=== PATIENT | female | born 1970 | race African-American/Black ===

== ENCOUNTER 2017-09-25 01:46 | Emergency (ER) | payer OTHER ==
[~2017-09-25] VITALS: Ht 157.5 cm; Wt 111.8 kg
[2017-09-25 02:14] VITALS: Ht 157.5 cm; Wt 111.8 kg
[2017-09-25] MEDS ORDERED: ONDANSETRON 4 MG INJ IV STA (02:16)
[2017-09-25] MEDS ORDERED: morphine 4 MG/ML VIAL IV STA (02:16)
[2017-09-25] MEDS ORDERED: SOD CHLORIDE 0.9% 500 ML IV STA (02:16)
[2017-09-25] MEDS ORDERED: ONDANSETRON 4 MG INJ IM STA (02:56)
[2017-09-25] MEDS ORDERED: morphine 4 MG/ML VIAL IM STA (02:56)
[2017-09-25 04:28] LABS: BASOPHILS % 0.7 % (0.0-2.0); EOSINOPHILS # 0.1 10^3/ul (0.0-0.5); EOSINOPHILS % 2.2 % (0.0-7.0); HEMATOCRIT 29.8 % (37.0-47.0); HEMOGLOBIN 9.8 g/dl (12.0-16.0); LYMPHOCYTES # 2.5 10^3/ul (0.8-2.9); LYMPHOCYTES % 46.5 % (15.0-51.0); MEAN CORPUSCULAR HEMOGLOBIN 24.7 pg (29.0-33.0); MEAN CORPUSCULAR HGB CONC 32.9 g/dl (32.0-37.0); MEAN CORPUSCULAR VOLUME 75.3 fl (82.0-101.0); MEAN PLATELET VOLUME 9.9 fl (7.4-10.4); MONOCYTE # 0.5 10^3/ul (0.3-0.9); MONOCYTES % 9.1 % (0.0-11.0); NEUTROPHIL # 2.2 10^3/ul (1.6-7.5); NEUTROPHILS % 41.3 % (39.0-77.0); PLATELET COUNT 393 10^3/UL (140-415); RED BLOOD COUNT 3.96 10^6/ul (4.20-5.40); RED CELL DISTRIBUTION WIDTH 15.9 % (11.5-14.5); WHITE BLOOD COUNT 5.4 10^3/ul (4.8-10.8)
[2017-09-25 04:52] LABS: ALBUMIN/GLOBULIN RATIO 1.02; BILIRUBIN,INDIRECT 0.3 mg/dl (0-1.1); BILIRUBIN,TOTAL 0.3 mg/dl (0.2-1.3); CALCIUM 8.9 mg/dl (8.4-10.2); CREATININE 0.79 mg/dl (0.44-1.00); POTASSIUM 3.8 mmol/L (3.5-5.1); TOTAL PROTEIN 7.9 g/dl (6.1-8.1)
--- NOTE | 2017-09-25 05:32 | ERD ---
ER Documentation Chief Complaint Chief Complaint vomiting and diarrhea x1 wk. HPI 47-year-old female with abdominal pain nausea vomiting diarrhea for the past week. No fevers no chills. No other current complaints. Patient is very a rash with multiple bites from them during that same time.. ROS All systems reviewed and are negative except as per history of present illness. Allergies Allergies: Coded Allergies: No Known Allergy (Unverified , 09/25/17) PMhx/Soc History of Surgery: No Anesthesia Reaction: No Hx Neurological Disorder: Yes (seizure) Hx Respiratory Disorders: No Hx Cardiac Disorders: Yes (htn) Hx Psychiatric Problems: Yes Hx Alcohol Use: No Hx Substance Use: No Hx Tobacco Use: Yes Smoking Status: Current some day smoker Physical Exam Vitals Vital Signs Date Time Temp Pulse Resp B/P Pulse Ox O2 Delivery O2 Flow Rate FiO2 09/25/17 05:04 98.6 59 20 160/127 100 Room Air 09/25/17 02:14 98.0 68 20 190/77 100 Physical Exam Const: [] Head: Atraumatic Eyes: Normal Conjunctiva ENT: Normal External Ears, Nose and Mouth. Neck: Full range of motion..~ No meningismus. Resp: Clear to auscultation bilaterally Cardio: Regular rate and rhythm, no murmurs Abd: Soft, non tender, non distended. Normal bowel sounds Skin: No petechiae or rashes Back: No midline or flank tenderness Ext: No cyanosis, or edema Neur: Awake and alert Psych: Normal Mood and Affect Result Diagram: 09/25/17 0403 09/25/17 0403 Results 24 hrs Laboratory Tests Test 09/25/17 04:03 White Blood Count 5.410^3/ul Red Blood Count 3.9610^6/ul Hemoglobin 9.8g/dl Hematocrit 29.8% Mean Corpuscular Volume 75.3fl Mean Corpuscular Hemoglobin 24.7pg Mean Corpuscular Hemoglobin Concent 32.9g/dl Red Cell Distribution Width 15.9% Platelet Count 55121^3/UL Mean Platelet Volume 9.9fl Neutrophils % 41.3% Lymphocytes % 46.5% Monocytes % 9.1% Eosinophils % 2.2% Basophils % 0.7% Nucleated Red Blood Cells % 0.0/100WBC Neutrophils # 2.210^3/ul Lymphocytes # 2.510^3/ul Monocytes # 0.510^3/ul Eosinophils # 0.110^3/ul Basophils # 0.010^3/ul Nucleated Red Blood Cells # 0.010^3/ul Sodium Level 144mmol/L Potassium Level 3.8mmol/L Chloride Level 105mmol/L Carbon Dioxide Level 27mmol/L Anion Gap 16 Blood Urea Nitrogen 9mg/dl Creatinine 0.79mg/dl Glucose Level 91mg/dl Calcium Level 8.9mg/dl Total Bilirubin 0.3mg/dl Direct Bilirubin 0.00mg/dl Indirect Bilirubin 0.3mg/dl Aspartate Amino Transf (AST/SGOT) 17IU/L Alanine Aminotransferase (ALT/SGPT) 17IU/L Alkaline Phosphatase 77IU/L Total Protein 7.9g/dl Albumin 4.0g/dl Globulin 3.90g/dl Albumin/Globulin Ratio 1.02 Lipase 67U/L Current Medications Medications (Trade) Dose Ordered Sig/Greyson Route PRN Reason Start Time Stop Time Status Last Admin Dose Admin Sodium Chloride (NS) 500 ml @ 500 mls/hr Q1H STAT IV 09/25/17 02:16 09/25/17 03:15 DC Morphine Sulfate (morphine) 4 mg ONCE STAT IV 09/25/17 02:16 09/25/17 02:58 DC Ondansetron HCl (Zofran Inj) 4 mg ONCE STAT IV 09/25/17 02:16 09/25/17 02:58 DC Morphine Sulfate (morphine) 4 mg ONCE STAT IM 09/25/17 02:56 09/25/17 03:04 DC 09/25/17 03:04 Ondansetron HCl (Zofran Inj) 4 mg ONCE STAT IM 09/25/17 02:56 09/25/17 03:04 DC 09/25/17 03:04 Procedures/MDM Decision-makin-year-old male with abdominal pain vomiting diarrhea. At this point clinically stable for outpatient management. No evidence of surgical abdomen. At this point is clinically stable for outpatient management patient will be discharged home. Told to follow-up in 8 hours for serial abdominal exams. Breath prescribed for bedbugs as well. Departure Diagnosis: Primary Impression: Diarrhea Diarrhea type: infectious Qualified Code: A09 - Diarrhea of infectious origin Condition: Stable ALYCIA OCHOA Sep 25, 2017 05:32
[2017-09-25] MEDS ORDERED: [UNRECOGNIZED DRUG - CODE] MC (05:34)
[2017-09-25] MEDS ORDERED: ELIM TOP ×2 (05:34→09:48)
[2017-09-25 05:40] VITALS: BP 156/99; PULSE 80; RESP 22; TEMP 98
== END 2017-09-25 06:35 | disposition home or self-care (01) ==
LOC: EDSEX 01:46 → E/R 01:46
DX: A09 Infectious gastroenteritis and colitis, unspecified (principal); I10 Essential (primary) hypertension; F17.210 Nicotine dependence, cigarettes, uncomplicated
CPT/HCPCS: 80053; 83690; 85025; 96372; J2270; J2405; J7040; Z7502

== ENCOUNTER 2017-09-25 08:46 | Emergency (ER) | payer OTHER ==
[~2017-09-25] VITALS: Ht 157.5 cm; Wt 111.7 kg
[~2017-09-25 08:46] MED LIST: ELIM TOP; [UNRECOGNIZED DRUG - CODE] MC
[2017-09-25 08:53] VITALS: Ht 157.5 cm; Wt 111.7 kg
[2017-09-25] MEDS ORDERED: ELIM TOP (09:48)
--- NOTE | 2017-09-25 10:47 | ERD ---
ER Documentation Chief Complaint Chief Complaint rash x1 week, bilat leg pain x 1 week HPI 47-year-old female patient with a past medical history of schizophrenia, seizures presents to the ED complaining of a rash that occurred 1 week ago. Patient reports that she was staying at a motel last Sunday and saw bedbugs and felt like they were biting her. Reports that she is tried taking Benadryl without relief of her symptoms. Denies any chest pain, shortness of breath, wheezing, abdominal pain, fever, chills. Patient was seen earlier today here in the ER and had a full evaluation including blood work. ROS All systems reviewed and are negative except as per history of present illness. Medications Home Meds Active Scripts Permethrin* (Elimite*) 5% Cr, 1 APPLIC TOP ONCE, #1 TUB Thoroughly massage cream (30 g for average adult) from head to soles of feet; leave on for 8 to 14 hours before removing (shower or bath) Prov:SHANIA HERNANDEZ PA-C 09/25/17 Permethrin* (Elimite*) 5% Cr, 1 APPLIC TOP ONCE for 7 Days, TUB Prov:ALYCIA OCHOA 09/25/17 Permethrin (Bedding [place]) 142 Gm [place], 142 GM MC Q12, #1 SPRAY Prov:ALYCIA OCHOA 09/25/17 Allergies Allergies: Coded Allergies: No Known Allergy (Unverified , 09/25/17) PMhx/Soc Medical and Surgical Hx: pt denies Surgical Hx History of Surgery: No Anesthesia Reaction: No Hx Neurological Disorder: Yes (seizure) Hx Respiratory Disorders: No Hx Cardiac Disorders: Yes (htn) Hx Psychiatric Problems: Yes Hx Alcohol Use: No Hx Substance Use: No Hx Tobacco Use: Yes Smoking Status: Current every day smoker Physical Exam Vitals Vital Signs Date Time Temp Pulse Resp B/P Pulse Ox O2 Delivery O2 Flow Rate FiO2 09/25/17 08:53 97.2 78 18 151/98 100 Physical Exam Const: [id number], well-nourished. In no acute distress. Head: Atraumatic, normocephalic Eyes: Normal Conjunctiva without injection. No purulent discharge. PERRLA. EOMI ENT: Normal external ear. Ear canal without erythema. Tympanic membrane pearly pollard without effusion or bulging. Nasal canal clear with normal turbinates. Moist oropharynx without tonsillar exudates. Non-erythematous pharynx. Uvula midline. No drooling. No trismus. Neck: No cervical midline tenderness. Full range of motion. No meningismus. No cervical lymphadenopathy. No JVD. Resp: Clear to auscultation bilaterally. No wheezing, rhonchi, rales, or crackles. No accessory muscle use. No retractions. Cardio: Regular rate and rhythm. No murmurs, rubs or gallops. Abd: Soft, non tender, non distended. Normal bowel sounds. No palpable masses. No rebound tenderness. No guarding. Negative McBurney's Point. Negative Subramanian's Sign. Skin: Normal skin turgor. No petechiae or purpura. Linear punctate bite lesions noted on patient's posterior back with no surrounding erythema or edema. No fluctuance or induration. No bleeding noted. Back: No midline tenderness. No CVA tenderness. Ext: No cyanosis, or edema. Distal pulses intact bilaterally. Neur: Awake and alert. Normal gait. Normal coordination. Cranial Nerves II- VII intact. Normal finger to nose. Muscle strength 5/5. Sensation intact. Psych: Normal Mood and Affect Results 24 hrs Current Medications Medications (Trade) Dose Ordered Sig/Greyson Route PRN Reason Start Time Stop Time Status Last Admin Dose Admin Ketorolac Tromethamine (Toradol) 60 mg ONCE STAT IM 09/25/17 10:52 09/25/17 10:54 DC 09/25/17 10:58 Procedures/MDM 47-year-old female patient with no significant past medical history presents to the ED complaining of a rash that occurred 1 week ago. Patient is afebrile and nontoxic-appearing. Patient has normal vital signs. Differentials include scabies versus bedbugs. Patient will be given a prescription for permethrin. Patient reports that the rashes are itchy and painful all over and wanted an injection for pain. Toradol Administered for patient.This case was discussed with my supervising physician, Dr. Rivas who agreed with the management and discharge plan. Low suspicion for anaphylaxis, SJS/TEN, TSS, Lyme's Disease, syphilis, RMSF, shingles, disseminated gonorrhea chlamydia, DIC, TTP, ITP, erythema multiforme, sepsis, cellulitis, necrotizing fascitis, gangrene, meningococcemia, allergic contact dermatitis, urticaria, eczema, tinea infection , or other emergent conditions. Discharge medications: Permethrin Follow up with primary care physician in 1-2 days. Instructed patient to return to the ED sooner for any worsening symptoms. Patient's questions were answered. Patient understood and agreed with discharge plan. Patient discharged stable. Departure Diagnosis: Primary Impression: Rash Condition: Stable Patient Instructions: Self-Care for Skin Rashes, Scabies Referrals: [facility] YOU HAVE RECEIVED A MEDICAL SCREENING EXAM AND THE RESULTS INDICATE THAT YOU DO NOT HAVE A CONDITION THAT REQUIRES URGENT TREATMENT IN THE EMERGENCY DEPARTMENT. FURTHER EVALUATION AND TREATMENT OF YOUR CONDITION CAN WAIT UNTIL YOU ARE SEEN IN YOUR DOCTORS OFFICE WITHIN THE NEXT 1-2 DAYS. IT IS YOUR RESPONSIBILITY TO MAKE AN APPOINTMENT FOR FOLOW-UP CARE. IF YOU HAVE A PRIMARY DOCTOR --you should call your primary doctor and schedule an appointment IF YOU DO NOT HAVE A PRIMARY DOCTOR YOU CAN CALL OUR PHYSICIAN REFERRAL HOTLINE AT IF YOU CAN NOT AFFORD TO SEE A PHYSICIAN YOU CAN CHOSE FROM THE FOLLOWING [facility] [address] [facility]. [facility] [address] [facility] [address] [facility] [facility] [address] [facility] [facility] [address] [facility]. [facility]. [address] [facility]. [facility] YOU HAVE RECEIVED A MEDICAL SCREENING EXAM AND THE RESULTS INDICATE THAT YOU DO NOT HAVE A CONDITION THAT REQUIRES URGENT TREATMENT IN THE EMERGENCY DEPARTMENT. FURTHER EVALUATION AND TREATMENT OF YOUR CONDITION CAN WAIT UNTIL YOU ARE SEEN IN YOUR DOCTORS OFFICE WITHIN THE NEXT 1-2 DAYS. IT IS YOUR RESPONSIBILITY TO MAKE AN APPOINTMENT FOR FOLOW-UP CARE. IF YOU HAVE A PRIMARY DOCTOR --you should call your primary doctor and schedule and appointment IF YOU DO NOT HAVE A PRIMARY DOCTOR YOU CAN CALL OUR PHYSICIAN REFERRAL HOTLINE AT . IF YOU CAN NOT AFFORD TO SEE A PHYSICIAN YOU CAN CHOSE FROM THE FOLLOWING [facility] INSTITUTIONS: [facility] [address] [place] [address] [facility] [address] [place] [address] [facility] + [facility] [address] [place] [address] [facility]/SPECIALTIES Additional Instructions: Call your primary care doctor TOMORROW for an appointment during the next 2-3 days.See the doctor sooner or return here if your condition worsens before your appointment time. SHANIA HERNANDEZ PA-C Sep 25, 2017 10:47
[2017-09-25] MEDS ORDERED: KETOROLAC 60 MG INJ IM STA (10:52)
== END 2017-09-25 09:49 | disposition home or self-care (01) ==
LOC: FTE 08:46
DX: R21 Rash and other nonspecific skin eruption (principal); I10 Essential (primary) hypertension; F17.210 Nicotine dependence, cigarettes, uncomplicated
CPT/HCPCS: 96372; J1885; Z7502

== ENCOUNTER 2017-09-27 07:31 | Emergency (ER) | payer OTHER ==
[~2017-09-27] VITALS: Ht 160 cm; Wt 111.0 kg
[2017-09-27 07:33] VITALS: Ht 160 cm; Wt 111.0 kg
--- NOTE | 2017-09-27 08:04 | ERD ---
ER Documentation Chief Complaint Chief Complaint pt bib family with c/o bilatt leg pain , HPI 47-year-old female, history of "heart problems" comes to emergency department with bilateral lower extremity swelling "for a long time." She states that she has had swelling to both lower extremities, she thinks it could have been for couple of years. She has line with pain. No fevers or chills, no trauma. She denies shortness breath, cough, chest pain. ROS All systems reviewed and are negative except as per history of present illness. Medications Home Meds Active Scripts Permethrin* (Elimite*) 5% Cr, 1 APPLIC TOP ONCE, #1 TUB Thoroughly massage cream (30 g for average adult) from head to soles of feet; leave on for 8 to 14 hours before removing (shower or bath) Prov:SHANIA HERNANDEZ PA-C 09/25/17 Permethrin* (Elimite*) 5% Cr, 1 APPLIC TOP ONCE for 7 Days, TUB Prov:ALYCIA OCHOA 09/25/17 Permethrin (Bedding [place]) 142 Gm [place], 142 GM MC Q12, #1 SPRAY Prov:ALYCIA OCHOA 09/25/17 Allergies Allergies: Coded Allergies: No Known Allergy (Unverified , 09/25/17) PMhx/Soc History of Surgery: No Anesthesia Reaction: No Hx Neurological Disorder: Yes (seizure) Hx Respiratory Disorders: No Hx Cardiac Disorders: Yes (htn) Hx Psychiatric Problems: Yes Hx Alcohol Use: No Hx Substance Use: No Hx Tobacco Use: Yes Physical Exam Vitals Vital Signs Date Time Temp Pulse Resp B/P Pulse Ox O2 Delivery O2 Flow Rate FiO2 09/27/17 07:33 98.8 76 18 168/95 98 Physical Exam General: Well-developed, well-nourished. The patient appears in no acute distress. HEENT: Head is normocephalic, atraumatic. No scleral icterus. Neck: Supple. Nontender. Lungs: Clear to auscultation. Normal air movement. Heart: Regular rate and rhythm. S1 and S2 are normal. No murmurs, gallops, or rubs. Abdomen: Soft, nontender, nondistended. Bowel sounds are normoactive. Extremities:, Non-pitting bilateral edema, no warmth or erythema Neurologic: Alert and oriented 3. No focal deficits. Skin: Normal turgor. No rash or lesions. Result Diagram: 09/27/17 0848 09/27/17 0848 Results 24 hrs Laboratory Tests Test 09/27/17 08:48 White Blood Count 4.310^3/ul Red Blood Count 3.9010^6/ul Hemoglobin 9.7g/dl Hematocrit 29.2% Mean Corpuscular Volume 74.9fl Mean Corpuscular Hemoglobin 24.9pg Mean Corpuscular Hemoglobin Concent 33.2g/dl Red Cell Distribution Width 15.8% Platelet Count 23538^3/UL Mean Platelet Volume 9.2fl Neutrophils % 49.0% Lymphocytes % 38.4% Monocytes % 9.4% Eosinophils % 2.3% Basophils % 0.7% Nucleated Red Blood Cells % 0.0/100WBC Neutrophils # 2.110^3/ul Lymphocytes # 1.610^3/ul Monocytes # 0.410^3/ul Eosinophils # 0.110^3/ul Basophils # 0.010^3/ul Nucleated Red Blood Cells # 0.010^3/ul Sodium Level 143mmol/L Potassium Level 3.2mmol/L Chloride Level 107mmol/L Carbon Dioxide Level 26mmol/L Anion Gap 13 Blood Urea Nitrogen 12mg/dl Creatinine 0.78mg/dl Glucose Level 88mg/dl Calcium Level 8.7mg/dl B-Type Natriuretic Peptide 250PG/ML Serum HCG, Qualitative NEGATIVE 12-lead EKG(interpreted by supervising physician): Dr. Arnold Rate/Rhythm: Normal Sinus Rhythm, rate of 64 QRS, ST, T-waves: No changes consistent w/ acute ischemia, no intervals, no dysrhythmias, no ectopy Impression: No evidence of ischemia or arrhythmia Radiology Main Line: [phone] DIAGNOSTIC IMAGING REPORT Patient: ARYAN BORREGO : 1970 Age: 47 Sex: F MR #: [id number] [facility] #: [id number] DOS: 09/27/17 0758 Ordering MD: RONY CORDERO PA-C Location: [facility] Room/Bed: PROCEDURE: XR Chest AP portable CLINICAL INDICATION: Lower extremity edema TECHNIQUE: An AP portable radiograph of the chest was submitted. COMPARISON: None. FINDINGS: Support Hardware: None Cardiovascular: The cardiovascular silhouette appears unremarkable. Lung Steen: The lung steen are clear. Pleural Spaces: No pneumothorax or pleural effusion is identified. Osseous Structures: The osseous structures appear intact. Soft Tissues: The soft tissues appear generous. IMPRESSION: Unremarkable portable chest Physician Leo Date Time Electronically viewed and signed by Vinod Heller Physician on 09/27/2017 09:02 RH/ Procedures/MDM 4 month. Patient's workup does not show ischemic changes on EKG, labs are normal, electrolytes are normal, BNP was 250, she is not in failure. Chest x- ray was performed, there is no vascular congestion noted. The patient presents with chronic peripheral edema, without signs of acute failure, DVT, cellulitis. The patient is stable for discharge, she was advised to follow-up with her PCP in the next several days. Patient's blood pressure was elevated (>120/80) but appears stable without evidence of hypertension emergency or urgency. The patient was counseled about the risks of hypertension and urged to pursue outpatient monitoring and therapy within a week with their primary care physician. Departure Diagnosis: Primary Impression: Peripheral edema ROYN CORDERO PA-C Sep 27, 2017 08:04
[2017-09-27 09:00] LABS: BASOPHILS % 0.7 % (0.0-2.0); EOSINOPHILS # 0.1 10^3/ul (0.0-0.5); EOSINOPHILS % 2.3 % (0.0-7.0); HEMATOCRIT 29.2 % (37.0-47.0); HEMOGLOBIN 9.7 g/dl (12.0-16.0); LYMPHOCYTES # 1.6 10^3/ul (0.8-2.9); LYMPHOCYTES % 38.4 % (15.0-51.0); MEAN CORPUSCULAR HEMOGLOBIN 24.9 pg (29.0-33.0); MEAN CORPUSCULAR HGB CONC 33.2 g/dl (32.0-37.0); MEAN CORPUSCULAR VOLUME 74.9 fl (82.0-101.0); MEAN PLATELET VOLUME 9.2 fl (7.4-10.4); MONOCYTE # 0.4 10^3/ul (0.3-0.9); MONOCYTES % 9.4 % (0.0-11.0); NEUTROPHIL # 2.1 10^3/ul (1.6-7.5); PLATELET COUNT 363 10^3/UL (140-415); RED CELL DISTRIBUTION WIDTH 15.8 % (11.5-14.5); WHITE BLOOD COUNT 4.3 10^3/ul (4.8-10.8)
--- NOTE | 2017-09-27 09:02 | RADRPT ---
PROCEDURE: XR Chest AP portable CLINICAL INDICATION: Lower extremity edema TECHNIQUE: An AP portable radiograph of the chest was submitted. COMPARISON: None. FINDINGS: Support Hardware: None Cardiovascular: The cardiovascular silhouette appears unremarkable. Lung Richmond: The lung richmond are clear. Pleural Spaces: No pneumothorax or pleural effusion is identified. Osseous Structures: The osseous structures appear intact. Soft Tissues: The soft tissues appear generous. IMPRESSION: Unremarkable portable chest Physician Leo Date Time Electronically viewed and signed by Vinod Heller Physician on 09/27/2017 09:02 /
[2017-09-27 09:20] LABS: CALCIUM 8.7 mg/dl (8.4-10.2); CREATININE 0.78 mg/dl (0.44-1.00); POTASSIUM 3.2 mmol/L (3.5-5.1)
[2017-09-27] MEDS ORDERED: KETOROLAC 30 MG INJ IM STA (10:07)
[2017-09-27 11:01] VITALS: BP 154/95; PULSE 75; RESP 18; TEMP 98.8
== END 2017-09-27 11:20 | disposition home or self-care (01) ==
LOC: FTE 07:31
DX: R60.0 Localized edema (principal); I10 Essential (primary) hypertension; F17.210 Nicotine dependence, cigarettes, uncomplicated; R06.02 Shortness of breath
CPT/HCPCS: 36415; 71010; 80048; 83880; 84703; 85025; 96372; J1885; Z7502

== ENCOUNTER 2017-10-13 00:12 | Emergency (ER) | payer OTHER ==
[~2017-10-13] VITALS: Ht 170.2 cm; Wt 106.4 kg
[2017-10-13 00:13] VITALS: Ht 170.2 cm; Wt 106.4 kg
[2017-10-13] MEDS ORDERED: ELIM TOP (01:24)
--- NOTE | 2017-10-13 01:28 | ERD ---
ER Documentation Chief Complaint Chief Complaint body itchinesss, states" bed bugs at home" HPI 47-year-old female complaining of diffuse body itchiness and states that she has scabies. Patient states that she can see the bugs but has been treated with creams and has not helped to relieve his symptoms. Patient states someone else at home some has similar symptoms. Denies any abdominal pain. Denies vomiting. Denies change in urination or bowel movement. ROS All systems reviewed and are negative except as per history of present illness. Medications Home Meds Active Scripts Permethrin* (Elimite*) 5% Cr, 1 APPLIC TOP ONCE, #1 TUB 4 Refills Prov:MERRILL BRUSH PA-C 10/13/17 Permethrin* (Elimite*) 5% Cr, 1 APPLIC TOP ONCE, #1 TUB Thoroughly massage cream (30 g for average adult) from head to soles of feet; leave on for 8 to 14 hours before removing (shower or bath) Prov:SHANIA HERNANDEZ PA-C 09/25/17 Permethrin* (Elimite*) 5% Cr, 1 APPLIC TOP ONCE for 7 Days, TUB Prov:ALYCIA OCHOA 09/25/17 Permethrin (Bedding [place]) 142 Gm [place], 142 GM MC Q12, #1 SPRAY Prov:ALYCIA OCHOA 09/25/17 Allergies Allergies: Coded Allergies: No Known Allergy (Unverified , 09/25/17) PMhx/Soc History of Surgery: Yes (CS, UMBILICAL HERNIA REPAIR ) Anesthesia Reaction: No Hx Neurological Disorder: Yes (seizure) Hx Respiratory Disorders: No Hx Cardiac Disorders: Yes (htn) Hx Psychiatric Problems: Yes (SCHITZOPHRENIA) Hx Alcohol Use: No Hx Substance Use: No ("CLEAN FOR 12 YEARS") Hx Tobacco Use: No Smoking Status: Former smoker Physical Exam Vitals Vital Signs Date Time Temp Pulse Resp B/P Pulse Ox O2 Delivery O2 Flow Rate FiO2 10/13/17 00:13 97.7 88 20 146/80 98 Physical Exam GENERAL: The patient is well-appearing, well-nourished, in no acute distress HEENT: Atraumatic. Conjunctivae are pink. Pupils equal, round, and reactive to light. There is no scleral icterus. Tympanic membranes clear bilaterally. Oropharynx clear. No nystagmus or photophobia. NECK: C-spine is soft and supple. There is no meningismus. There is no cervical lymphadenopathy. CHEST: Clear to auscultation bilaterally. There are no rales, wheezes or rhonchi. HEART: Regular rate and rhythm. No murmurs, clicks, rubs or gallops. No S3 or S4. ABDOMEN:Soft, nontender and nondistended. Good bowel sounds. No rebound or guarding. No gross peritonitis. No gross organomegaly or masses. No Subramanian sign or McBurney point tenderness. SKIN: Corrugations and linear burrowing appreciated on back and groin. No vesicles. No Results 24 hrs Current Medications Medications (Trade) Dose Ordered Sig/Greyson Route PRN Reason Start Time Stop Time Status Last Admin Dose Admin Penicillin G Benzathine (Bicillin La) 1,200,000 units ONCE ONCE IM 10/13/17 01:30 10/13/17 01:31 Procedures/MDM ER course: IM penicillin given the ED per patient's request. She states that "shot is the only thing will help my symptoms" MDM: 47-year-old female complaining of scabies outbreak. Patient will be discharged with permethrin. Patient did receive an IM injection of penicillin in the ED as she states that the only thing that will help her symptoms. Patient is somewhat aggressive in nature. I explained patient that she likely needs an additional treatment of permethrin cream. Patient states that she will follow up with PMD within 1 to 2 days for close evaluation. Patient is discharged with strict ER precautions Departure Diagnosis: Primary Impression: Itching Condition: Stable Patient Instructions: Self-Care for Skin Rashes Referrals: [facility] YOU HAVE RECEIVED A MEDICAL SCREENING EXAM AND THE RESULTS INDICATE THAT YOU DO NOT HAVE A CONDITION THAT REQUIRES URGENT TREATMENT IN THE EMERGENCY DEPARTMENT. FURTHER EVALUATION AND TREATMENT OF YOUR CONDITION CAN WAIT UNTIL YOU ARE SEEN IN YOUR DOCTORS OFFICE WITHIN THE NEXT 1-2 DAYS. IT IS YOUR RESPONSIBILITY TO MAKE AN APPOINTMENT FOR FOLOW-UP CARE. IF YOU HAVE A PRIMARY DOCTOR --you should call your primary doctor and schedule an appointment IF YOU DO NOT HAVE A PRIMARY DOCTOR YOU CAN CALL OUR PHYSICIAN REFERRAL HOTLINE AT IF YOU CAN NOT AFFORD TO SEE A PHYSICIAN YOU CAN CHOSE FROM THE FOLLOWING [facility] [address] [facility] [address] [facility] [address] [facility] [address] [address] [facility] [facility] [address] Additional Instructions: FOLLOW UP WITH YOUR PRIMARY CARE PHYSICIAN TOMORROW.Return to this facility if you are not improving as expected. MERRILL BRUSH PA-C Oct 13, 2017 01:28
[2017-10-13] MEDS ORDERED: PENICILLIN G BENZ 1.2 MIL UNIT SYG IM ONE (01:30)
== END 2017-10-13 02:21 | disposition home or self-care (01) ==
LOC: FTE 00:12
DX: L29.9 Pruritus, unspecified (principal); I10 Essential (primary) hypertension; Z87.891 Personal history of nicotine dependence
CPT/HCPCS: 96372; J0561

== ENCOUNTER 2018-01-12 14:28 | Emergency (ER) | END 2018-01-12 23:18 | disposition home or self-care (01) ==

== ENCOUNTER 2018-01-17 14:19 | Emergency (ER) | END 2018-01-17 23:00 | disposition home or self-care (01) ==

== ENCOUNTER 2018-02-03 21:58 | Emergency (ER) | END 2018-02-04 04:15 | disposition home or self-care (01) ==

== ENCOUNTER 2018-05-28 20:39 | Emergency (ER) | END 2018-05-29 05:16 | disposition home or self-care (01) ==

== ENCOUNTER 2018-08-07 16:06 | Emergency (ER) | END 2018-08-07 17:46 | disposition home or self-care (01) ==

== ENCOUNTER 2018-08-16 21:21 | Emergency (ER) | END 2018-08-17 05:40 | disposition short-term general hospital (02) ==

== ENCOUNTER 2018-08-24 21:04 | Emergency (ER) | END 2018-08-25 02:41 | disposition home or self-care (01) ==

== ENCOUNTER 2018-08-29 20:04 | Emergency (ER) | END 2018-08-30 00:43 | disposition home or self-care (01) ==

== ENCOUNTER 2018-09-09 00:57 | Emergency (ER) | END 2018-09-09 10:16 | disposition short-term general hospital (02) ==

== ENCOUNTER 2018-09-14 23:17 | Emergency (ER) | END 2018-09-15 05:15 | disposition home or self-care (01) ==

== ENCOUNTER 2018-09-15 10:10 | Emergency (ER) | END 2018-09-15 11:53 | disposition home or self-care (01) ==

== ENCOUNTER → 2018-09-18 | Emergency (ER) | END | disposition home or self-care (01) ==

== ENCOUNTER 2018-09-24 18:20 | Emergency (ER) | END 2018-09-24 20:15 | disposition home or self-care (01) ==

== ENCOUNTER 2018-10-02 20:05 | Emergency (ER) | END 2018-10-03 02:03 | disposition home or self-care (01) ==

== ENCOUNTER 2018-10-05 21:20 | Emergency (ER) | END 2018-10-06 03:20 | disposition home or self-care (01) ==

== ENCOUNTER 2018-10-07 21:16 | Emergency (ER) | END 2018-10-08 02:44 | disposition home or self-care (01) ==

== ENCOUNTER 2018-10-11 13:57 | Inpatient (IN) | END 2018-10-16 17:20 | DRG 988 ==

== ENCOUNTER 2018-10-18 19:23 | Emergency (ER) | END 2018-10-19 06:35 | disposition short-term general hospital (02) ==

== ENCOUNTER 2018-11-08 18:39 | Emergency (ER) | payer OTHER ==
[~2018-11-08] VITALS: Wt 132.0 kg
[2018-11-08] MEDS ORDERED: ONDA4TAB14 PO (20:22)
--- NOTE | 2018-11-08 20:24 | ERD ---
ER Documentation Chief Complaint Chief Complaint bib ra from home for 'feeling sick' cough, sob, HPI Patient is a 48-year-old female with schizophrenia, diabetes, and hypertension who presents with vomiting and diarrhea. The patient says that she was discharged from [facility] a few days ago. Her says she had a fever "up to 130". The patient did not get a flu shot this year. She has not called her primary doctor. She is speaking in full sentences. She says that she has a cough and congestion. Upon review of old medical records the patient has multiple visits to the ER for various complaints. She does have a primary doctor. ROS All systems reviewed and are negative except as per history of present illness. Medications Home Meds Active Scripts Ondansetron (Ondansetron Odt) 4 Mg Tab.rapdis, 4 MG PO Q6H PRN for NAUSEA AND/OR VOMITING, #10 TAB Prov:PATRICIA HENDRICKSON MD 11/08/18 Allergies Allergies: Coded Allergies: diphenhydramine (Unverified Allergy, Severe, ITCH, 11/08/18) aspirin (Unverified Allergy, Unknown, hives, 11/08/18) PMhx/Soc History of Surgery: Yes Anesthesia Reaction: No Hx Neurological Disorder: Yes (Seizure,CVA) Hx Respiratory Disorders: No Hx Cardiac Disorders: Yes (CHF, HTN) Hx Psychiatric Problems: Yes (Schizophrenia,Bipolar D/O) Hx Miscellaneous Medical Probl: Yes (Morbid Obesity, DM) Hx Alcohol Use: No Hx Substance Use: No Hx Tobacco Use: No Smoking Status: Never smoker FmHx Family History: diabetes Physical Exam Vitals Vital Signs Date Temp Pulse Resp B/P (MAP) Pulse Ox O2 O2 Flow FiO2 Time Delivery Rate 11/08/18 98.9 105 22 171/81 94 18:47 (111) Physical Exam Const: No acute distress Head: Atraumatic Eyes: Normal Conjunctiva ENT: Normal External Ears, Nose and Mouth. Neck: Full range of motion. No meningismus. Resp: Clear to auscultation bilaterally Cardio: Regular rate and rhythm, no murmurs Abd: Soft, non tender, non distended. Normal bowel sounds Skin: No petechiae or rashes Back: No midline or flank tenderness Ext: No cyanosis, or edema Neur: Awake and alert Procedures/MDM EKG read by me: Rate/Rhythm: Regular rate and rhythm at a rate of 68 Intervals: Normal Impression: No evidence of ischemia or arrhythmia Chest x-ray negative for pneumonia or pneumothorax per radiology. Flu swab was negative. Patient is a 48-year-old female presents with complaints consistent with a viral syndrome. EKG showed a normal sinus rhythm without ischemia. Chest x-ray was negative for pneumonia or pneumothorax. Flu swab was negative. At this point I believe outpatient management is appropriate. Her vital signs are normal. I doubt significant GI bleed. I doubt sepsis or other serious bacterial infection. The patient will be discharged but should follow-up with her primary doctor within 24-48 hours. The patient can return sooner for any worsening symptoms. Departure Diagnosis: Primary Impression: Vomiting and diarrhea Additional Impression: Viral syndrome Condition: Fair Patient Instructions: Self-Care for Vomiting and Diarrhea Additional Instructions: Call your primary care doctor TOMORROW for an appointment during the next 1-2 days.See the doctor sooner or return here if your condition worsens before your appointment time. PATRICIA HENDRICKSON MD Nov 08, 2018 20:24
[2018-11-08 21:06] VITALS: BP 165/79; PULSE 105; RESP 22
== END 2018-11-08 21:15 | disposition home or self-care (01) ==
LOC: E/R 18:39
DX: B34.9 Viral infection, unspecified (principal); I11.0 Hypertensive heart disease with heart failure; I50.9 Heart failure, unspecified; E11.9 Type 2 diabetes mellitus without complications; E66.01 Morbid (severe) obesity due to excess calories; Z86.73 Personal history of transient ischemic attack (TIA), and cerebral infarction without residual deficits
CPT/HCPCS: 71045; 87400; 93005

== ENCOUNTER 2018-11-18 15:23 | Emergency (ER) | payer OTHER ==
[~2018-11-18] VITALS: Ht 165.1 cm; Wt 160.0 kg
[~2018-11-18 15:23] MED LIST changes: -ELIM TOP; +ONDA4TAB14 PO; -[UNRECOGNIZED DRUG - CODE] MC
[2018-11-18 15:57] VITALS: Ht 165.1 cm; Wt 160.0 kg
[2018-11-18] MEDS ORDERED: ONDANSETRON 4 MG INJ IV STA ×2 (16:04→21:48)
[2018-11-18] MEDS ORDERED: HYDROmorphONE 1 MG/ML SYG IV STA ×2 (16:04→21:48)
[2018-11-18] MEDS ORDERED: IODIXANOL LOCM 100 ML BTL ONE (17:54)
[2018-11-18] MEDS ORDERED: SOD CHLORIDE 0.9% 100 ML ONE (17:54)
[2018-11-18] MEDS ORDERED: CEFTRIAXONE 1 GM/50 ML (PMX) 50 ML IVPB STA (18:39)
[2018-11-18] MEDS ORDERED: AZITHROMYCIN 500MG/NS (PMX) 250 ML IV STA (18:39)
--- NOTE | 2018-11-18 18:39 | ERD ---
ER Documentation Chief Complaint Chief Complaint BIBA AP and rectal/vaginal bleeding x several days, diarrhea also HPI This is a 48-year-old female with multiple medical complaints. She states she is having 3 days of bright red blood per rectum mixed with her stool with diffuse abdominal pain with no nausea or vomiting. She says she may be having vaginal bleeding as well. She says she is also blowing her nose a lot with bloody noses. She is not on any anticoagulants she states. She says she has congestive heart failure but is not taking any medication at all. She says her legs are very swollen she has dyspnea on exertion and orthopnea. She also complains of chronic cough with yellow mucus production lately but no fever ROS All systems reviewed and are negative except as per history of present illness. Medications Home Meds Discontinued Scripts Ondansetron (Ondansetron Odt) 4 Mg Tab.rapdis, 4 MG PO Q6H PRN for NAUSEA AND/OR VOMITING, #10 TAB Prov:PATRICIA HENDRICKSON MD 11/08/18 Allergies Allergies: Coded Allergies: diphenhydramine (Unverified Allergy, Severe, ITCH, 11/18/18) aspirin (Unverified Allergy, Unknown, hives, 11/18/18) PMhx/Soc History of Surgery: Yes Anesthesia Reaction: No Hx Neurological Disorder: Yes (Seizure,CVA) Hx Respiratory Disorders: No Hx Cardiac Disorders: Yes (CHF, HTN) Hx Psychiatric Problems: Yes (Schizophrenia,Bipolar D/O) Hx Miscellaneous Medical Probl: Yes (Morbid Obesity, DM) Hx Alcohol Use: No Hx Substance Use: No Hx Tobacco Use: No Smoking Status: Never smoker FmHx Family History: No coronary disease Physical Exam Vitals Vital Signs Date Temp Pulse Resp B/P (MAP) Pulse Ox O2 O2 Flow FiO2 Time Delivery Rate 11/18/18 71 20 145/69 98 Room Air 18:10 (94) 11/18/18 Nasal 2 18:00 Cannula 11/18/18 98.3 98 20 170/113 98 15:57 (132) Physical Exam C const: Well-developed, well-nourished, obese Head: Atraumatic, normocephalic Eyes: Normal Conjunctiva, PERRLA, EOMI, normal sclera, no nystagmus ENT: Normal External Ears, Nose and Mouth, moist mucus membranes. Neck: Full range of motion. No meningismus, no lymphadenopathy. Resp: Clear to auscultation bilaterally, no wheezing, rhonchi, rales Cardio: Regular rate and rhythm, no murmurs, S1 S2 present Abd: Soft, non tender x 4, non distended. Normal bowel sounds, no guarding or rebound, no pulsitile abdominal masses or bruits Skin: No petechiae or rashes, no ecchymosis , no maculopapular rash Back: No midline or flank tenderness Ext: No cyanosis, +3-4 lower extremity edema, FROM x 4, normal ins pection, neurovascularly intact x 4 Neur: Awake and alert, STR 5/5 x 4, sensation intact x 4, no focal findings, cerebellum intact Psych: Normal Mood and Affect Result Diagram: 11/18/186 11/18/18 1716 Results 24 hrs Laboratory Tests Test 11/18/18 17:16 11/18/18 18:07 White Blood Count 6.6 10^3/ul Red Blood Count 4.62 10^6/ul Hemoglobin 11.0 g/dl Hematocrit 34.6 % Mean Corpuscular Volume 74.9 fl Mean Corpuscular Hemoglobin 23.8 pg Mean Corpuscular Hemoglobin Concent 31.8 g/dl Red Cell Distribution Width 22.1 % Platelet Count 267 10^3/UL Mean Platelet Volume 9.8 fl Immature Granulocytes % 0.200 % Neutrophils % 60.2 % Lymphocytes % 26.3 % Monocytes % 10.7 % Eosinophils % 2.1 % Basophils % 0.5 % Nucleated Red Blood Cells % 0.0 /100WBC Immature Granulocytes # 0.010 10^3/ul Neutrophils # 4.0 10^3/ul Lymphocytes # 1.7 10^3/ul Monocytes # 0.7 10^3/ul Eosinophils # 0.1 10^3/ul Basophils # 0.0 10^3/ul Nucleated Red Blood Cells # 0.0 10^3/ul Sodium Level 142 mmol/L Potassium Level 4.1 mmol/L Chloride Level 104 mmol/L Carbon Dioxide Level 26 mmol/L Anion Gap 12 Blood Urea Nitrogen 7 mg/dl Creatinine 0.49 mg/dl Est Glomerular Filtrat Rate mL/min > 60 mL/min Glucose Level 88 mg/dl Calcium Level 9.2 mg/dl Total Bilirubin 0.3 mg/dl Direct Bilirubin 0.00 mg/dl Indirect Bilirubin 0.3 mg/dl Aspartate Amino Transf (AST/SGOT) 21 IU/L Alanine Aminotransferase (ALT/SGPT) 10 IU/L Alkaline Phosphatase 70 IU/L Troponin I < 0.012 ng/ml B-Type Natriuretic Peptide 341 PG/ML Total Protein 8.0 g/dl Albumin 4.0 g/dl Globulin 4.00 g/dl Albumin/Globulin Ratio 1.00 Urine Color STRAW Urine Clarity CLEAR Urine pH 8.0 Urine Specific [facility] 1.008 Urine Ketones NEGATIVE mg/dL Urine Nitrite NEGATIVE mg/dL Urine Bilirubin NEGATIVE mg/dL Urine Urobilinogen NEGATIVE mg/dL Urine Leukocyte Esterase NEGATIVE Andreia/ul Urine Microscopic RBC 58 /HPF Urine Microscopic WBC 1 /HPF Urine Squamous Epithelial Cells FEW /HPF Urine Bacteria FEW /HPF Urine Hemoglobin 3+ mg/dL Urine Glucose NEGATIVE mg/dL Urine Total Protein NEGATIVE mg/dl Current Medications Medications Dose Sig/Greyson Start Time Status Last (Trade) Ordered Route PRN Stop Time Admin Dose Reason Admin 1 mg ONCE STAT 11/18/18 DC 11/18/18 Hydromorphone IV 16:04 11/18/18 17:19 HCl 16:07 (Dilaudid) Ondansetron 4 mg ONCE STAT 11/18/18 DC 11/18/18 HCl (Zofran IV 16:04 11/18/18 17:19 Inj) 16:07 IV Flush 10 ml STK-MED 11/18/18 DC 11/18/18 (NS 10 ml) ONCE .ROUTE 17:54 11/18/18 18:19 17:55 Sodium 100 ml @ ud STK-MED 11/18/18 DC 11/18/18 Chloride ONCE .ROUTE 17:54 11/18/18 18:19 17:55 Iodixanol 100 ml STK-MED 11/18/18 DC 11/18/18 (Visipaque ONCE .ROUTE 17:54 11/18/18 18:19 Locm) 17:55 Azithromycin 250 ml @ ONCE STAT 11/18/18 250 mls/hr IV 18:39 11/18/18 19:38 Ceftriaxone 50 ml @ ONCE STAT 11/18/18 Sodium 100 mls/hr IVPB 18:39 11/18/18 19:08 Procedures/MDM EKG: Rate/Rhythm: Normal Sinus Rhythm,NL intervals QRS, ST, QT: NORMAL WI, QRS, QT] Impression: NORMAL EKG MR #: [id number] DOS: 11/18/18 1604 Ordering MD: DUKE GAMBLE DO Location: E/R Room/Bed: PROCEDURE: XR Chest. CLINICAL INDICATION: Chest pain TECHNIQUE: Single portable view of the chest was obtained COMPARISON: CR CHEST 05/07/2010 FINDINGS: The heart is enlarged. There is a right lower lobe infiltrate. There is no pleural effusion or pneumothorax. RPTAT: AA IMPRESSION: Mild Cardiomegaly. Focal right lower lobe infiltrate. .Niels Flores MD, MD Date Time Electronically viewed and signed by .Niels Flores MD, MD on 11/18/2018 16:55 .S/ CC: DUKE GAMBLE DO [id number] Ordering MD: DUKE GAMBLE DO Location: E/R Room/Bed: PROCEDURE: CT abdomen and pelvis with contrast. CLINICAL INDICATION: abdominal pain TECHNIQUE: CT scan of the abdomen and pelvis with contrast was performed on a multi-slice CT scanner . The patient was scanned after administration of 100 cc of Isovue 300 intravenous contrast. Sagittal and coronal reformatted images were obtained from the axial source images. One or more of the following dose reduction techniques were used: - Automated exposure control. - Adjustment of the mA and/or kV according to patient size. - Use of iterative reconstruction technique. DICOM images are available DLP 1341.81 mGycm. CTDIvol 23.78 mGy COMPARISON: 10/11/2018 FINDINGS: Lower thorax:The lung bases are clear. There is a possible trace hiatus hernia. Liver: There is hepatomegaly of the liver with no focal lesion. The portal vein is intact without thrombus. Biliary: The gallbladder is read. There is a mildly dilated appearance the common duct and intrahepatic biliary ducts and this appears subjectively slightly increased from the prior study. Pancreas: Homogeneous density and enhancement of the pancreas without visible focal lesion or cystic abnormality. There is no pancreatic ductal dilatation. Spleen: Unremarkable without enlargement or focal lesion. Adrenal Glands: The adrenal glands are within normal limits without mass. Urinary: The kidneys are symmetric in size bilaterally with symmetric enhancement. There are no visible renal or ureteral stones. There is no hydronephrosis. Gastrointestinal: There is no bowel obstruction or focal bowel inflammation. The appendix is unremarkable. There is scattered diverticulosis without diverticulitis. There is a partially fecal filled colon. Lymph nodes: There are no enlarged lymph nodes. Vascular: The aorta is unremarkable. Peritoneum/mesentery: No free fluid or free air. Reproductive organs: The uterus and adnexal structures are grossly within normal limits. Musculoskeletal: Degenerative changes are seen in the lumbar spine with stable appearance of deformity of the bilateral hip joints more pronounced on the left where there is chronic subluxation and significant remodelling of the left humerus head. Surgical changes of the anterior abdominal wall are seen from prior hernia repair with stable soft tissue thickening and scarring. Trace fat containing hernia seen at the midline above the level of the hernia repair. Other: None IMPRESSION: There is a partially fecal filled colon. No evidence of bowel obstruction or inflammation. There is no appendicitis. There is diverticulosis without diverticulitis. Hepatomegaly. Mild biliary ductal enlargement may be related to postcholecystectomy physiology and can be correlated with bilirubin levels. Surgical changes of the anterior abdominal wall from hernia repair with scarring. There is continued mild fat containing hernia seen at the superior margin of the hernia mesh. Graft chronic deformity of the bilateral hip joints again more pronounced on the left where there is superior subluxation. RPTAT: AA .Cristi Mcdaniels MD, Date Time Electronically viewed and signed by .Cristi Mcdaniels MD, MD on 11/18/2018 18:43 .J/ CC: DUKE GAMBLE DO [id number] Patient has a lower GI bleed likely from a diverticular bleed. May need a tagged red blood cell scan to find out./Colonoscopy. Patient does have signs of heart failure with lower extremity swelling dyspnea on exertion and orthopnea with a mild to moderately elevated BNP. May need some gentle diuresis or medications because she is not on any now and which could markedly help her situation. She also has a lower lobe pneumonia she has had cultures drawn and sent off a [id number] lactic acid which I doubt will be elevated given antibiotics and blood cultures. Will admit for pneumonia, CHF exacerbation, lower GI bleed. Departure Diagnosis: Primary Impression: Right lower lobe pneumonia Pneumonia type: due to unspecified organism Qualified Codes: J18.1 - Lobar pneumonia, unspecified organism Additional Impressions: Lower GI bleed CHF exacerbation Heart failure type: unspecified Qualified Codes: I50.9 - Heart failure, unspecified Condition: Stable DUKE GAMBLE DO Nov 18, 2018 18:39
[2018-11-18 22:26] VITALS: BP 122/86; PULSE 98; RESP 20
== END 2018-11-18 22:56 | disposition short-term general hospital (02) ==
LOC: E/R 15:23
DX: J18.1 Lobar pneumonia, unspecified organism (principal); K92.2 Gastrointestinal hemorrhage, unspecified; I50.9 Heart failure, unspecified; E11.9 Type 2 diabetes mellitus without complications; I11.0 Hypertensive heart disease with heart failure; E66.01 Morbid (severe) obesity due to excess calories; Z86.73 Personal history of transient ischemic attack (TIA), and cerebral infarction without residual deficits; Z68.43 Body mass index [BMI] 50.0-59.9, adult
CPT/HCPCS: 36415; 71045; 74177; 80053; 81001; 83880; 84484; 85025; 87040; 93005; 96374; 96375; 96376; J0456; J0696; J1170; J2405; Q9967; Z7502; Z7610

== ENCOUNTER 2018-12-09 18:43 | Emergency (ER) | payer OTHER ==
[~2018-12-09] VITALS: Ht 160 cm; Wt 98.0 kg
--- NOTE | 2018-12-09 18:53 | QN ---
Documentation Comment Patient seen immediately upon arrival she arrived by ambulance. Chief complaint is for chest pain. The patient will be sent to triage for further vital signs and will be seen by another provider. Medical screening exam was initiated. PATRICIA HENDRICKSON MD Dec 09, 2018 18:53
[2018-12-09 18:54] VITALS: Ht 160 cm; Wt 98.0 kg
--- NOTE | 2018-12-09 21:20 | ERD ---
ER Documentation Chief Complaint Chief Complaint pt is bib RA 81 from home with c/o ap, gil, not feeling well for a few days HPI This is a 48-year-old female with a past medical history of hypertension, diabetes, congestive heart failure, previous CVA, seizure disorder, bipolar disorder, schizophrenia, multiple visits to the emergency department for various complaints who is presenting with multiple complaints today. The patient endorses feeling generally unwell. The patient has not had any fever or chills, but she does say that she thinks she has a virus. Her partner is currently sick. She endorses pain throughout her whole body. She endorses nonspecific nonradiating moderate sharp aching chest discomfort. She cannot say if anything makes it better or worse. She reports chronic unchanged shortness of breath. She denies having a cough. She does not appear to be in any distress currently. She notes waxing and waning mild to moderate generalized cramping abdominal pain with associated loose watery brown nonbloody diarrhea. The patient reports a procedure that occurred this month for blood in her stool, but she cannot say exactly what the procedure was. She is not bleeding today. She has not had any black or bloody or tarry stools. She has not had any constipation. She denies any changes to urination. She does not report dysuria or hematuria or urgency or frequency. She does not endorse nausea or vomiting. She also endorses a mild throbbing waxing and waning frontal headache. She denies any changes in vision. She has not had any photophobia or phonophobia. She has not had any double or blurry vision. She denies any focal deficits. She denies any new weakness or numbness or tingling to the face or extremities. The patient denies any alleviating or exacerbating factors. She has not taken anything at home for her discomfort. ROS All systems reviewed and are negative except as per history of present illness. Medications Home Meds No Active Prescriptions or Reported Meds Allergies Allergies: Coded Allergies: diphenhydramine (Verified Allergy, Severe, ITCH, 12/09/18) aspirin (Verified Allergy, Unknown, hives, 12/09/18) PMhx/Soc History of Surgery: Yes Anesthesia Reaction: No Hx Neurological Disorder: Yes (Seizure,CVA) Hx Respiratory Disorders: No Hx Cardiac Disorders: Yes (Hypertension, diabetes, congestive heart failure) Hx Psychiatric Problems: Yes (Schizophrenia, Bipolar D/O) Hx Miscellaneous Medical Probl: Yes (Morbid Obesity) Hx Alcohol Use: No Hx Substance Use: No Hx Tobacco Use: No FmHx Family History: diabetes Physical Exam Vitals Vital Signs Date Temp Pulse Resp B/P (MAP) Pulse Ox O2 O2 Flow FiO2 Time Delivery Rate 12/09/18 98.5 78 16 132/91 100 18:54 (105) Physical Exam Const: No apparent distress, well-developed, well-nourished Head: Normocephalic, Atraumatic Eyes: Normal Conjunctiva. Extraocular movements intact. Pupils equal, round and reactive to light ENT: Normal External Ears, Nose and Mouth. Neck: Full range of motion. No meningismus. Resp: Clear to auscultation bilaterally, No wheezes, rales or rhonchi Cardio: Regular rate and rhythm. No murmurs, rubs or gallops Abd: Morbid obesity. Soft, non tender, non distended. Normal bowel sounds Skin: No petechiae or rashes Back: No midline tenderness. No CVA tenderness Ext: No cyanosis, or edema Neur: Awake and alert, oriented 4. Cranial nerves intact. No facial droop. Normal strength, sensation and coordination. Psych: Agitated Result Diagram: 12/09/18220612/09/182206 Results 24 hrs Laboratory Tests Test 12/09/18 21:43 12/09/18 22:07 Urine Color YELLOW Urine Clarity CLOUDY Urine pH 7.0 Urine Specific [place] 1.012 Urine Ketones NEGATIVE mg/dL Urine Nitrite NEGATIVE mg/dL Urine Bilirubin NEGATIVE mg/dL Urine Urobilinogen NEGATIVE mg/dL Urine Leukocyte Esterase NEGATIVE Andreia/ul Urine Microscopic RBC 27 /HPF Urine Microscopic WBC 8 /HPF Urine Squamous Epithelial Cells MODERATE /HPF Urine Calcium Oxalate Crystals FEW /HPF Urine Bacteria FEW /HPF Urine Mucus FEW /HPF Urine Hemoglobin NEGATIVE mg/dL Urine Glucose NEGATIVE mg/dL Urine Total Protein NEGATIVE mg/dl White Blood Count 6.1 10^3/ul Red Blood Count 4.22 10^6/ul Hemoglobin 10.4 g/dl Hematocrit 31.7 % Mean Corpuscular Volume 75.1 fl Mean Corpuscular Hemoglobin 24.6 pg Mean Corpuscular Hemoglobin Concent 32.8 g/dl Red Cell Distribution Width 19.8 % Platelet Count 317 10^3/UL Mean Platelet Volume 9.1 fl Immature Granulocytes % 0.200 % Neutrophils % 53.5 % Lymphocytes % 33.6 % Monocytes % 9.2 % Eosinophils % 3.0 % Basophils % 0.5 % Nucleated Red Blood Cells % 0.0 /100WBC Immature Granulocytes # 0.010 10^3/ul Neutrophils # 3.3 10^3/ul Lymphocytes # 2.1 10^3/ul Monocytes # 0.6 10^3/ul Eosinophils # 0.2 10^3/ul Basophils # 0.0 10^3/ul Nucleated Red Blood Cells # 0.0 10^3/ul Sodium Level 142 mmol/L Potassium Level 3.9 mmol/L Chloride Level 104 mmol/L Carbon Dioxide Level 29 mmol/L Anion Gap 9 Blood Urea Nitrogen 12 mg/dl Creatinine 0.64 mg/dl Est Glomerular Filtrat Rate mL/min > 60 mL/min Glucose Level 93 mg/dl Calcium Level 9.5 mg/dl Total Bilirubin 0.0 mg/dl Direct Bilirubin 0.00 mg/dl Indirect Bilirubin 0.0 mg/dl Aspartate Amino Transf (AST/SGOT) 17 IU/L Alanine Aminotransferase (ALT/SGPT) 18 IU/L Alkaline Phosphatase 86 IU/L Troponin I < 0.012 ng/ml B-Type Natriuretic Peptide 136 PG/ML Total Protein 7.4 g/dl Albumin 3.9 g/dl Globulin 3.50 g/dl Albumin/Globulin Ratio 1.11 Lipase 70 U/L Current Medications Medications Dose Sig/Greyson Start Time Status Last (Trade) Ordered Route PRN Stop Time Admin Dose Reason Admin 5 mg ONCE ONCE 12/09/18 DC 12/09/18 Prochlorperaz IV 21:30 22:49 ine 12/09/18 21:31 (Compazine Inj) Sodium 500 ml @ Q1H ONCE 12/09/18 DC 12/09/18 Chloride 500 mls/hr IV 21:30 22:48 12/09/18 22:29 Ketorolac 15 mg ONCE STAT 12/09/18 DC 12/09/18 Tromethamine IV 21:29 22:49 (Toradol) 12/09/18 21:30 Procedures/MDM MDM The patient's presentation warrants further investigation. Previous medical records, if available, were reviewed. LABS The patient's laboratory testing was obtained and reviewed. No emergent treatment was required unless described below. CBC: No E/o of systemic infection or severe anemia or thrombocytopenia. Mild microcytic anemia, nonemergent. CMP: No E/o severe acidosis or alkalosis or renal failure or liver disease or diabetic ketoacidosis Lipase: No E/o pancreatitis Troponin: No E/o acute ischemia BNP: Very mildly elevated in an indeterminate range, very low clinical suspicion for heart failure Urine: E/o acute infection with hematuria. Oxalate crystals are also evident, but a recent CT of the abdomen did not reveal kidney stones and the patient has no flank pain, low clinical suspicion for nephrolithiasis. Tox: No E/o alcohol abuse. No E/o illicit drug use. No E/o salicylate or acetaminophen use. EKG EKG read by me: Rate/Rhythm: Regular rate and rhythm at a rate of 74 bpm Intervals: Normal [place]: Left axis deviation Impression: No evidence of acute ischemia or arrhythmia IMAGING Imaging and Radiology interpretation reviewed. CXR FINDINGS: Heart is mildly enlarged. Aorta is mildly tortuous. There is no pneumothorax or pleural effusion. There is no focal pulmonic consolidation. IMPRESSION: No acute pulmonary abnormality. Mild cardiomegaly. Electronically viewed and signed by Deshaun Jarrell Physician on 12/09/2018 21:59 CT Abd/Pelvis from 11/18/2018 COMPARISON: 10/11/2018 FINDINGS: Lower thorax:The lung bases are clear. There is a possible trace hiatus hernia. Liver: There is hepatomegaly of the liver with no focal lesion. The portal vein is intact without thrombus. Biliary: The gallbladder is read. There is a mildly dilated appearance the common duct and intrahepatic biliary ducts and this appears subjectively slightly increased from the prior study. Pancreas: Homogeneous density and enhancement of the pancreas without visible focal lesion or cystic abnormality. There is no pancreatic ductal dilatation. Spleen: Unremarkable without enlargement or focal lesion. Adrenal Glands: The adrenal glands are within normal limits without mass. Urinary: The kidneys are symmetric in size bilaterally with symmetric enhancement. There are no visible renal or ureteral stones. There is no hydronephrosis. Gastrointestinal: There is no bowel obstruction or focal bowel inflammation. The appendix is unremarkable. There is scattered diverticulosis without diverticulitis. There is a partially fecal filled colon. Lymph nodes: There are no enlarged lymph nodes. Vascular: The aorta is unremarkable. Peritoneum/mesentery: No free fluid or free air. Reproductive organs: The uterus and adnexal structures are grossly within normal limits. Musculoskeletal: Degenerative changes are seen in the lumbar spine with stable appearance of deformity of the bilateral hip joints more pronounced on the left where there is chronic subluxation and significant remodelling of the left humerus head. Surgical changes of the anterior abdominal wall are seen from prior hernia repair with stable soft tissue thickening and scarring. Trace fat containing hernia seen at the midline above the level of the hernia repair. Other: None IMPRESSION:There is a partially fecal filled colon. No evidence of bowel obstruction or inflammation. There is no appendicitis. There is diverticulosis without diverticulitis. Hepatomegaly. Mild biliary ductal enlargement may be related to postcholecystectomy physiology and can be correlated with bilirubin levels. Surgical changes of the anterior abdominal wall from hernia repair with scarring. There is continued mild fat containing hernia seen at the superior margin of the hernia mesh. Graft chronic deformity of the bilateral hip joints again more pronounced on the left where there is superior subluxation. Electronically viewed and signed by Cristi Mcdaniels MD, MD on 11/18/2018 18:43 TREATMENT/DISPOSITION The patient presents with multiple complaints. The patient reports feeling generally unwell. She endorses full body pain. A viral syndrome is certainly a possibility. She endorses a headache. This could be related to her other pathologies today, including a viral syndrome. Differential diagnosis includes migraine, tension headache, cluster headache. The patient has no focal deficits. The neurologic exam is reassuring. I have decreased suspicion for cerebral ischemia. There was no trauma or injury. There is no personal or family history of cerebral aneurysm. This is not the worst headache of the patient's life. It was not acutely severe. It is been progressive in nature. I have decreased suspicion for SAH or other ICH. I have low suspicion for temporal arteritis, cavernous venous thrombosis, subdural hematoma, epidural hematoma, meningitis. I do not feel that CT imaging of the head is warranted at this time. The patient also endorses general nonspecific abdominal pain. The patient's abdominal exam was benign. The patient's urinalysis is concerning for a urinary tract infection. This can be treated. The patient does not have any flank pain. The patient's urinalysis did show hematuria and a few oxalate crystals. However, she had a CT scan performed this month that did not reveal kidney stones. I have very low suspicion for nephrolithiasis. The patient has no flank pain. The patient does not endorse symptoms concerning for renal colic. The patient denies any nausea or vomiting, she does report diarrhea today. This appears to be an ongoing problem, but gastroenteritis is certainly a possibility. The patient has not been on antibiotics recently. I have low suspicion for C. difficile colitis. The patient does not have any evidence of peritonitis. The patient does not have clinical symptoms concerning for mesenteric ischemia or ischemic colitis. The patient does not have right upper quadrant tenderness, and I have low suspicion for gallstones, cholecystitis or biliary colic. The patient does not have any epigastric pain. I have low suspicion for gastritis, PUD or GERD. The patient does not have left upper quadrant tenderness. I have low suspicion for pancreatitis. The patient does not have any right lower quadrant tenderness, or periumbilical tenderness. I have low suspicion for appendicitis. The patient does not have any left lower quadrant tenderness, and I have low suspicion for diverticulosis or diverticulitis. The patient does not have any palpable pulsatile mass or severe abdominal pain radiating to the back. I have low suspicion for aortic aneurysm, dissection or rupture. The patient's chest xray does not reveal pneumonia or pneumothorax or pleural effusions or pulmonary edema. She does not have a widened mediastinum and does not have signs or symptoms concerning for thoracic aortic aneurysm or dissection. The patient does not have pneumomediastinum or signs concerning for esophageal tear or rupture. The patient has no clinical or radiographic signs of pericardial effusion or tamponade. The patient does not have pneumoperitoneum and I have decreased suspicion of viscus perforation as possible referred pain. The patient does have a history of heart failure, but her exam only shows faint bibasilar rales and her BNP is not significantly elevated. The patient is in no respiratory distress, and I have low suspicion for a heart failure exacerbation today. The patient does not have a diagnosis of COPD and is not wheezing today. The patient is not tachypneic or hypoxic. The patient is breathing comfortably and without pleuritic pain. The patient is not on hormonal therapy. The patient has no history of clotting or bleeding disorders. The patient has no calf tenderness. The patient has had no hemoptysis. I have decreased suspicion for PE. The patient's troponin and EKG are reassuring. I have low suspicion for acute coronary syndrome. The patient's HEART score is equal to or less than 3. This stratifies the patient into the low risk (<1%) group for an major adverse cardiac event within the next 30 days. Shared decision making was enacted. The risks and benefits of admission and discharge were discussed with the patient and it was ultimately decided that the patient would be discharged with close outpatient follow up and evaluation for functional testing within 72 hours. The patient was treated with IV fluids, Toradol and Compazine for her headache and generalized pains. Upon reevaluation of the patient, symptoms have improved. No emergent diagnoses were identified. At this time, I feel that the patient stable for discharge. The patient was instructed to follow-up with a primary care physician in 1-3 days. The patient will be given strict precautions with which to return to the emergency department. Prescriptions: Ciprofloxacin The patient's blood pressure was elevated at greater than 120/80 while in the emergency department. The patient was otherwise stable with no evidence of hypertensive urgency or emergency. The patient does not require admission for blood pressure control. I have discussed with the patient the risks of hypertension. I have instructed the patient to return to the ER for any new or worsening symptoms including chest pain, shortness of breath, headache, blurred vision, confusion, nausea, vomiting or LOC. I have advised the patient to follow up with the primary care physician for outpatient monitoring and treatment for hypertension in 1-3 days. Disclaimer: Inadvertent spelling and grammatical errors are likely due to EHR/dictation software use and do not reflect on the overall quality of patient care. Note that the electronic time recorded on this note does not necessarily reflect the actual time of the patient encounter. Departure Diagnosis: Primary Impression: Chest pain Chest pain type: unspecified Qualified Codes: R07.9 - Chest pain, unspecified Additional Impressions: Abdominal pain Abdominal location: generalized Qualified Codes: R10.84 - Generalized abdominal pain Headache Headache type: unspecified Headache chronicity pattern: acute headache Intractability: not intractable Qualified Codes: R51 - Headache Chronic CHF Heart failure type: unspecified Qualified Codes: I50.9 - Heart failure, unspecified Myalgia Urinary tract infection Urinary tract infection type: acute cystitis Hematuria presence: with hematuria Qualified Codes: N30.01 - Acute cystitis with hematuria Normocytic anemia Condition: Stable JULIA GIRALDO MD Dec 09, 2018 21:20
[2018-12-09] MEDS ORDERED: KETOROLAC 15 MG INJ IV STA (21:29)
[2018-12-09] MEDS ORDERED: SOD CHLORIDE 0.9% 500 ML IV ONE (21:30)
[2018-12-09] MEDS ORDERED: PROCHLORPERAZINE 10 MG INJ IV ONE (21:30)
[2018-12-10] MEDS ORDERED: CIPR500T4 PO (00:33)
[2018-12-10 01:18] VITALS: BP 111/83; PULSE 70; RESP 17
== END 2018-12-10 01:49 | disposition home or self-care (01) ==
LOC: E/R 18:43
DX: R51 Headache (principal); I11.0 Hypertensive heart disease with heart failure; I50.9 Heart failure, unspecified; N30.01 Acute cystitis with hematuria; M79.10 Myalgia, unspecified site; D64.9 Anemia, unspecified; E11.9 Type 2 diabetes mellitus without complications; E66.01 Morbid (severe) obesity due to excess calories; Z86.73 Personal history of transient ischemic attack (TIA), and cerebral infarction without residual deficits; Z68.38 Body mass index [BMI] 38.0-38.9, adult
CPT/HCPCS: 71045; 80053; 81001; 83690; 83880; 84484; 85025; 93005; 96374; 96375; J0780; J1885; J7040; Z7502; Z7610

== ENCOUNTER 2019-01-23 19:18 | Emergency (ER) | payer OTHER ==
[~2019-01-23] VITALS: Ht 165.1 cm; Wt 100.0 kg
[~2019-01-23 19:18] MED LIST changes: +CIPR500T4 PO; -ONDA4TAB14 PO
[2019-01-23 19:20] VITALS: Ht 165.1 cm; Wt 100.0 kg
--- NOTE | 2019-01-23 19:20 | QN ---
Documentation Comment Patient seen immediately upon arrival she arrived by ambulance. The patient will be sent to triage for further vital signs and will be seen by another provider. Medical screening exam was initiated. PATRICIA HENDRICKSON MD Jan 23, 2019 19:20
[2019-01-23] MEDS ORDERED: FLUMAZENIL 0.5 MG INJ IV ONE (23:00)
[2019-01-23] MEDS ORDERED: NALOXONE 2 MG SYG IV ONE (23:00)
--- NOTE | 2019-01-24 00:09 | ERD ---
ER Documentation Chief Complaint Chief Complaint BIB RA FOR GROUP HOME PLACEMENT. STATES IS COLD/HOMELESS. BLANKET PROVIDED HPI This is a 49-year-old female who is been to the ER multiple times in the past year. She is homeless and she states that she is cold and sick of being outside. She says she is tired has body pain. She is a very very poor historian and she is a bit groggy here. She denies any drug or alcohol use ROS All systems reviewed and are negative except as per history of present illness. Medications Home Meds Discontinued Scripts Ciprofloxacin Hcl* (Ciprofloxacin Hcl*) 500 Mg Tablet, 500 MG PO BID for 10 Days, TAB Prov:JULIA GIRALDO MD 12/10/18 Allergies Allergies: Coded Allergies: diphenhydramine (Verified Allergy, Severe, ITCH, 12/09/18) aspirin (Verified Allergy, Unknown, hives, 12/09/18) PMhx/Soc History of Surgery: Yes Anesthesia Reaction: No Hx Neurological Disorder: Yes (Seizure,CVA) Hx Respiratory Disorders: No Hx Cardiac Disorders: Yes (Hypertension, diabetes, congestive heart failure) Hx Psychiatric Problems: Yes (Schizophrenia, Bipolar D/O) Hx Miscellaneous Medical Probl: Yes (Morbid Obesity) Hx Alcohol Use: No Hx Substance Use: No Hx Tobacco Use: No Smoking Status: Unknown if ever smoked FmHx Family History: No coronary disease Physical Exam Vitals Vital Signs Date Temp Pulse Resp B/P (MAP) Pulse Ox O2 O2 Flow FiO2 Time Delivery Rate 01/24/19 80 19 127/60 99 Room Air 04:08 (82) 01/24/19 78 20 122/65 99 Room Air 02:16 (84) 01/23/19 79 20 113/61 100 Room Air 22:34 (78) 01/23/19 98.5 87 18 166/73 99 19:20 (104) Physical Exam Const: No acute distress Head: Atraumatic Eyes: Normal Conjunctiva ENT: Normal External Ears, Nose and Mouth. Neck: Full range of motion. No meningismus. Resp: Clear to auscultation bilaterally Cardio: Regular rate and rhythm, no murmurs Abd: Soft, non tender, non distended. Normal bowel sounds Skin: No petechiae or rashes Back: No midline or flank tenderness Ext: No cyanosis, or edema Neur: Groggy but arousable and answers questions Psych: Normal Mood and Affect Result Diagram: 01/24/19 0050 01/24/19 0050 Results 24 hrs Laboratory Tests Test 01/24/19 00:50 White Blood Count 11.0 10^3/ul Red Blood Count 3.87 10^6/ul Hemoglobin 10.0 g/dl Hematocrit 29.5 % Mean Corpuscular Volume 76.2 fl Mean Corpuscular Hemoglobin 25.8 pg Mean Corpuscular Hemoglobin Concent 33.9 g/dl Red Cell Distribution Width 16.2 % Platelet Count 312 10^3/UL Mean Platelet Volume 8.8 fl Immature Granulocytes % 0.700 % Neutrophils % 77.4 % Lymphocytes % 13.0 % Monocytes % 8.1 % Eosinophils % 0.4 % Basophils % 0.4 % Nucleated Red Blood Cells % 0.0 /100WBC Immature Granulocytes # 0.080 10^3/ul Neutrophils # 8.5 10^3/ul Lymphocytes # 1.4 10^3/ul Monocytes # 0.9 10^3/ul Eosinophils # 0.0 10^3/ul Basophils # 0.0 10^3/ul Nucleated Red Blood Cells # 0.0 10^3/ul Sodium Level 132 mmol/L Potassium Level 2.7 mmol/L Chloride Level 95 mmol/L Carbon Dioxide Level 28 mmol/L Anion Gap 9 Blood Urea Nitrogen 18 mg/dl Creatinine 0.81 mg/dl Est Glomerular Filtrat Rate mL/min > 60 mL/min Glucose Level 99 mg/dl Calcium Level 8.7 mg/dl Total Bilirubin 0.8 mg/dl Direct Bilirubin 0.00 mg/dl Indirect Bilirubin 0.8 mg/dl Aspartate Amino Transf (AST/SGOT) 61 IU/L Alanine Aminotransferase (ALT/SGPT) 38 IU/L Alkaline Phosphatase 60 IU/L Troponin I < 0.012 ng/ml Total Protein 7.0 g/dl Albumin 3.5 g/dl Globulin 3.50 g/dl Albumin/Globulin Ratio 1.00 Current Medications Medications Dose Sig/Greyson Start Time Status Last (Trade) Ordered Route PRN Stop Time Admin Dose Reason Admin Naloxone 1 mg ONCE ONCE 01/23/19 DC 01/24/19 HCl IV 23:00 01:05 (Narcan) 01/23/19 23:01 Flumazenil 0.3 mg ONCE ONCE 01/23/19 DC 01/24/19 (Romazicon) IV 23:00 01:05 01/23/19 23:01 Potassium 100 ml @ ONCE ONCE 01/24/19 DC 01/24/19 Chloride 50 mls/hr IVPB 01:30 01:44 01/24/19 03:29 Procedures/MDM MR #: [id number] DOS: 01/24/19 0041 Ordering MD: DUKE GAMBLE DO Location: E/R Room/Bed: PROCEDURE: CT Brain without contrast. CLINICAL INDICATION: 41-year-old female. Altered mental status. TECHNIQUE: A CT of the brain was performed on a multi-slice CT scanner utilizing axial imaging from the skull base through the vertex without IV contrast. Multiplanar reformatted images were made. Images were reviewed on a PACS workstation. One or more the following dose reduction techniques were ut ilized: Automated exposure control, adjustment of mA/ or kV according to patient's size, or use of iterative reconstruction technique. DICOM images are available for review. The CTDIvol is 78.08 mGy and the DLP is 1260 8.46 mGycm. COMPARISON: None FINDINGS: No mass effect or midline shift. Normal ventricles for age. No acute intra-axial or extra-axial hemorrhage. No subdural collection. Ortiz - white matter differentiation is maintained. Visualized paranasal sinuses are clear. Mastoid air cells are clear. IMPRESSION: Negative noncontrast CT brain RPTAT: [facility] Physician Elida Date Time Electronically viewed and signed by Physician Elida on 01/24/2019 02:39 RS/ CC: DUKE GAMBLE DO [id number] The patient was found to have a low potassium of 2.7. She was given 20 mEq of potassium chloride intravenously. Patient has been stable and sleeping most of the night. She is arousable and will follow commands and answer questions and talk problem fall back asleep. I let her sleep in the ER and then in an hour so will get her up and discharge her. She has no abnormalities on lab results otherwise. We will also give her a dose of potassium orally before discharge Departure Diagnosis: Primary Impression: Hypokalemia Condition: Stable DUKE GAMBLE DO Jan 24, 2019 00:09
[2019-01-24] MEDS ORDERED: POTASSIUM CHLORIDE 100 ML IVPB ONE (01:30)
[2019-01-24] MEDS ORDERED: POTASSIUM CHLORIDE (SR) 20 MEQ TAB PO ONE (05:11)
[2019-01-24] MEDS ORDERED: TRAZ-149 PO (05:28)
[2019-01-24] MEDS ORDERED: AMLO-145 PO (05:28)
[2019-01-24] MEDS ORDERED: ERGO500013 PO (05:28)
[2019-01-24] MEDS ORDERED: FURO20TA3 PO (05:28)
--- NOTE | 2019-01-24 11:51 | EN ---
Date/Time of Note Date/Time of Note DATE: 01/24/19 TIME: 11:50 ER Progress Note Observation Note: Indication: Gravely disabled Duration: Greater than 8 hours Family history: No history of diabetes The patient was observed with serial exams over the above timeframe. The patient continued to be well-appearing, and observation continued without complication. It should be noted that the patient is gravely disabled. The patient is urinating herself, unable to transition or get out of bed. The patient is not able to care for activities of daily living and would benefit from skilled nursing placement. coordinator of rehabilitation services consultation has been made. Pending placement at this time. RADHA WHELAN MD Jan 24, 2019 11:51
[2019-01-24 18:33] VITALS: BP 118/58; PULSE 82; RESP 16
== END 2019-01-24 22:35 | disposition home or self-care (01) ==
LOC: E/R 19:18
DX: E87.6 Hypokalemia (principal); I11.0 Hypertensive heart disease with heart failure; I50.9 Heart failure, unspecified; E11.9 Type 2 diabetes mellitus without complications; E66.01 Morbid (severe) obesity due to excess calories; Z86.73 Personal history of transient ischemic attack (TIA), and cerebral infarction without residual deficits; Z68.36 Body mass index [BMI] 36.0-36.9, adult
CPT/HCPCS: 36415; 70450; 80053; 84484; 85025; 96365; 96366; 96375; J2310; J3480; Z7502; Z7610

== ENCOUNTER 2019-02-18 13:14 | Emergency (ER) | payer OTHER ==
[~2019-02-18] VITALS: Ht 167.6 cm; Wt 80.0 kg
[~2019-02-18 13:14] MED LIST changes: +AMLO-145 PO; -CIPR500T4 PO; +ERGO500013 PO; +FURO20TA3 PO; +TRAZ-149 PO
[2019-02-18 13:28] VITALS: Ht 167.6 cm; Wt 80.0 kg
--- NOTE | 2019-02-18 13:52 | ERD ---
ER Documentation Chief Complaint Chief Complaint BIB RA FOR EVAL OF CP HPI The patient is a 49-year-old female, presenting to the ER because of intermittent substernal chest pain for the last 2 days, denies any chest pain now, has similar symptoms previously, was seen in the ER multiple times for similar symptoms. She also complained of the right buttock sore for the last 4 days, denies fever or chills, neck pain, chest pain with vomiting/radiation/exertional/diaphoresis, dyspnea, abdominal pain, vomiting, dysuria. She does not smoke or drink Past medical history: Hypertension, epilepsy, history of CVA, diabetes mellitus, history of CHF, schizophrenia, bipolar Past surgical history: None ROS All systems reviewed and are negative except as per history of present illness. Medications Home Meds Discontinued Reported Medications Trazodone Hcl* (Desyrel*) 50 Mg Tab, 50 MG PO QHS for 30 Days, #30 01/24/19 Amlodipine Besylate* (Amlodipine Besylate*) 5 Mg Tablet, 5 MG PO DAILY for 30 Days, #30 01/24/19 Furosemide* (Furosemide*) 20 Mg Tablet, 20 MG PO DAILY for 30 Days, #30 01/24/19 Ergocalciferol (Vitamin D2) (VITAMIN D2) 50,000 Unit Capsule, 86005 UNIT PO Q7D 01/24/19 Allergies Allergies: Coded Allergies: diphenhydramine (Verified Allergy, Severe, ITCH, 02/18/19) aspirin (Verified Allergy, Unknown, hives, 02/18/19) PMhx/Soc History of Surgery: Yes Anesthesia Reaction: No Hx Neurological Disorder: Yes (Seizure,CVA) Hx Respiratory Disorders: No Hx Cardiac Disorders: Yes (Hypertension, diabetes, congestive heart failure) Hx Psychiatric Problems: Yes (Schizophrenia, Bipolar D/O) Hx Miscellaneous Medical Probl: Yes (Morbid Obesity) Hx Alcohol Use: No Hx Substance Use: No Hx Tobacco Use: No Smoking Status: Never smoker Physical Exam Vitals Vital Signs Date Temp Pulse Resp B/P (MAP) Pulse Ox O2 O2 Flow FiO2 Time Delivery Rate 02/18/19 92 18 144/80 100 Room Air 19:00 (101) 02/18/19 89 18 134/89 100 Room Air 18:11 (104) 02/18/19 99.0 90 17 138/69 100 13:28 (92) Physical Exam Const: No acute distress. Head: Atraumatic. Eyes: Normal Conjunctiva. ENT: Normal External Ears, Nose and Mouth. Neck: Full range of motion. No meningismus. Resp: Clear to auscultation bilaterally. Cardio: Regular rate and rhythm. Abd: Soft, non distended, normal bowel sounds, non tender. Skin: No petechiae or rashes. Back: No midline or flank tenderness. Ext: No cyanosis, or edema. R buttock pressure ulcer Neur: Awake and alert. No focal deficit Psych: Normal Mood and Affect. Result Diagram: 02/18/19 1543 02/18/19 1543 Results 24 hrs Laboratory Tests Test 02/18/19 15:43 White Blood Count 5.2 10^3/ul Red Blood Count 4.21 10^6/ul Hemoglobin 10.6 g/dl Hematocrit 32.4 % Mean Corpuscular Volume 77.0 fl Mean Corpuscular Hemoglobin 25.2 pg Mean Corpuscular Hemoglobin Concent 32.7 g/dl Red Cell Distribution Width 15.8 % Platelet Count 334 10^3/UL Mean Platelet Volume 9.4 fl Immature Granulocytes % 0.200 % Neutrophils % 58.6 % Lymphocytes % 27.6 % Monocytes % 10.7 % Eosinophils % 2.3 % Basophils % 0.6 % Nucleated Red Blood Cells % 0.0 /100WBC Immature Granulocytes # 0.010 10^3/ul Neutrophils # 3.1 10^3/ul Lymphocytes # 1.4 10^3/ul Monocytes # 0.6 10^3/ul Eosinophils # 0.1 10^3/ul Basophils # 0.0 10^3/ul Nucleated Red Blood Cells # 0.0 10^3/ul Sodium Level 140 mmol/L Potassium Level 3.9 mmol/L Chloride Level 102 mmol/L Carbon Dioxide Level 27 mmol/L Anion Gap 11 Blood Urea Nitrogen 6 mg/dl Creatinine 0.63 mg/dl Est Glomerular Filtrat Rate mL/min > 60 mL/min Glucose Level 100 mg/dl Calcium Level 9.0 mg/dl Troponin I < 0.012 ng/ml [facility] [place] [id number] Radiology Main Line: [phone] DIAGNOSTIC IMAGING REPORT Patient: ARYAN BORREGO : 1970 Age: 49 Sex: F MR #: [id number] DOS: 02/18/19 1403 Ordering MD: HEATHER SOLIS MD Location: E/R Room/Bed: PROCEDURE: XR Chest. CLINICAL INDICATION: chest pain TECHNIQUE: Single frontal view of the chest was obtained COMPARISON: CR CHEST 05/07/2010 FINDINGS: Limited study due to patient rotation. The heart and mediastinum are within normal limits. There is mild elevation of the right diaphragm. The lungs are clear. There is no pleural effusion or pneumothorax. RPTAT: AA IMPRESSION: No acute disease. .Niels Flores MD, MD Date Time Electronically viewed and signed by .Niels Flores MD, on 02/18/2019 14:20 .S/ CC: HEATHER SOLIS MD [id number] EKG: Read by emergency physician Rate/Rhythm: Normal Sinus Rhythm 91 beats/min QRS, ST, T-waves: No ST elevation, no T inversion Impression: EKG MEDICAL MAKING DECISION: The patient is an 49-year-old female, presenting with acute chest pain for 2 days with negative troponin. I do not suspect active ACS. The differential diagnoses considered include but are not limited to acute c oronary syndrome, acute myocardial infarction, pericarditis, pulmonary embolism, aortic dissection, pneumonia, pleural effusion, pneumothorax, GERD, chest wall pain. Consultation: The 911 supervisor garment manufacturing did talk with me and stated that she frequently called 911 She was evaluated by social sciences instructor and telepsychiatrist Departure Diagnosis: Primary Impression: Chest pain Additional Impressions: Pressure ulcer Anemia Condition: Good Comments I discussed the findings with the patient. I advised the patient to follow-up with the primary physician in about 2-3 days, sooner if needed and return if any concern. Disclaimer: Inadvertent spelling and grammatical errors are likely due to EHR/dictation software use and do not reflect on the overall quality of patient care. Also, please note that the electronic time recorded on this note does not necessarily reflect the actual time of the patient encounter. HEATHER SOLIS MD Feb 18, 2019 13:51
--- NOTE | 2019-02-18 17:13 | PSY ---
Date/Time of Note Date/Time of Note DATE: 02/18/19 TIME: 17:09 Psychiatric Subjective Eval Consent Pt consented to telemedicine: Yes Subjective Evaluation Patient location: emergency Chief Complaint: BIB RA FOR EVAL OF CP TODAY. EK DONE ON ARRIVAL History of present illness 49 yo female with hx schizophrenia BIB EMS after she called 911 c/o chest pain. Pt aparently has been frequently calling 911. Pt is not receptive to the telepsych assessment; initially she says she nver had psychiatric care and nver was treated by a psychiatrist. Then she says she is on SSI for schizophrenia; she says hse was in a psych hospital "many years ago" - per SW note - 2 weeks ago. No meds. Pt denies AH ro VH. Pt is parannoid and guarded, irritable, but she denies SI or HI. SHe denies insomnia; she denies depressed mood; she says she talib go back to her apartment. Past psychiatric history prior inpt Hospitalization: yes Family History denies Medical history Problems Medical Problems: (1) Abdominal pain Status: Acute (2) Abdominal pain Status: Acute (3) Abdominal pain Status: Acute (4) Acute cystitis Status: Acute (5) Anal fissure Status: Acute (6) Anemia Status: Acute (7) Anemia Status: Acute (8) Anemia Status: Acute (9) Asthma Status: Acute (10) Koroma's cyst of knee Status: Acute (11) Chest pain Status: Acute (12) Chest pain Status: Acute (13) CHF exacerbation Status: Acute (14) Chronic abdominal pain Status: Acute (15) Chronic CHF Status: Acute (16) Chronic pain Status: Acute (17) Chronic pain syndrome Status: Acute (18) Chronic pain syndrome Status: Acute (19) Chronic pruritus Status: Acute (20) Diarrhea Status: Acute (21) Diffuse abdominal pain Status: Acute (22) Edema Status: Acute (23) Gastroenteritis Status: Acute (24) GI bleed Status: Acute (25) Headache Status: Acute (26) Hypertension Status: Acute (27) Hypokalemia Status: Acute (28) Infected insect bite Status: Acute (29) Itching Status: Acute (30) Lower GI bleed Status: Acute (31) Microcytic anemia Status: Acute (32) Morbid obesity Status: Acute (33) Morbid obesity with BMI of 45.0-49.9, adult Status: Acute (34) Myalgia Status: Acute (35) Nausea and vomiting Status: Acute (36) Nausea vomiting and diarrhea Status: Acute (37) Normocytic anemia Status: Acute (38) Opioid dependence Status: Acute (39) Opioid dependence Status: Acute (40) Periorbital edema of right eye Status: Acute (41) Peripheral edema Status: Acute (42) Peripheral edema Status: Acute (43) Rash Status: Acute (44) Rectal hemorrhage Status: Acute (45) Rectal pain Status: Acute (46) Right leg pain Status: Acute (47) Right lower lobe pneumonia Status: Acute (48) Stage 1 decubitus ulcer Status: Acute (49) URI (upper respiratory infection) Status: Acute (50) Urinary tract infection Status: Acute (51) Urinary tract infection Status: Acute (52) UTI (urinary tract infection) Status: Acute (53) UTI (urinary tract infection) Status: Acute (54) Viral syndrome Status: Acute (55) Vomiting and diarrhea Status: Acute Allergies: Coded Allergies: diphenhydramine (Verified Allergy, Severe, ITCH, 02/18/19) aspirin (Verified Allergy, Unknown, hives, 02/18/19) Substance Abuse Substance use: No known substance abuse Social History Marital status: single Level of education: 8th grade DPA/Conservatorship: No Occupation/Chcf: on ssi Psychiatric Objective Eval Review of Systems: Review of Systems: Not Applicable Mental Status Examination: Appearance: Disheveled Eye Contact: Good Psychomotor Activity: Normal Behavior: Guarded Speech: Clear AFFECT: Guarded Mood: Irritable Though Process: Circumstantial Thought Content: Delusions Suicidal: No Homicidal: No On 72 hour hold: No Orientation: x4 Cognition: Alert Insight: Impared Judgement: Impared Laboratory Results Laboratory Tests Test 02/18/19 15:43 White Blood Count 5.2 10^3/ul Red Blood Count 4.21 10^6/ul Hemoglobin 10.6 g/dl Hematocrit 32.4 % Mean Corpuscular Volume 77.0 fl Mean Corpuscular Hemoglobin 25.2 pg Mean Corpuscular Hemoglobin Concent 32.7 g/dl Red Cell Distribution Width 15.8 % Platelet Count 334 10^3/UL Mean Platelet Volume 9.4 fl Immature Granulocytes % 0.200 % Neutrophils % 58.6 % Lymphocytes % 27.6 % Monocytes % 10.7 % Eosinophils % 2.3 % Basophils % 0.6 % Nucleated Red Blood Cells % 0.0 /100WBC Immature Granulocytes # 0.010 10^3/ul Neutrophils # 3.1 10^3/ul Lymphocytes # 1.4 10^3/ul Monocytes # 0.6 10^3/ul Eosinophils # 0.1 10^3/ul Basophils # 0.0 10^3/ul Nucleated Red Blood Cells # 0.0 10^3/ul Sodium Level 140 mmol/L Potassium Level 3.9 mmol/L Chloride Level 102 mmol/L Carbon Dioxide Level 27 mmol/L Anion Gap 11 Blood Urea Nitrogen 6 mg/dl Creatinine 0.63 mg/dl Est Glomerular Filtrat Rate mL/min > 60 mL/min Glucose Level 100 mg/dl Calcium Level 9.0 mg/dl Troponin I < 0.012 ng/ml Assessment and Plan Assessment/Diagnosis Diagnosis PARANOID SCHIZOPHRENIA. Recommendation/Plan Medication Management PT DECLINED PSYCH MEDS; PLEASE OFFER RX FOR ZYPREXA 5 MG PO BID Discharge Disposition: Community (home) Legal Status: Voluntary Other NO DTS, NO DTO, NO GD (HAS APARTMENT, HAS SSI). PT IS NOT HOLDABLE. PT CAN BE DISCHARGE WITH OUTPT REFERRAL. BALTAZAR VEGA MD Feb 18, 2019 17:13
[2019-02-19 01:00] VITALS: BP 110/74; PULSE 81; RESP 18
== END 2019-02-18 16:48 | disposition home or self-care (01) ==
LOC: E/R 13:14
DX: R07.2 Precordial pain (principal); D64.9 Anemia, unspecified; I50.9 Heart failure, unspecified; E66.01 Morbid (severe) obesity due to excess calories; E11.622 Type 2 diabetes mellitus with other skin ulcer; L98.419 Non-pressure chronic ulcer of buttock with unspecified severity; Z86.73 Personal history of transient ischemic attack (TIA), and cerebral infarction without residual deficits
CPT/HCPCS: 36415; 71045; 80048; 84484; 85025; 93005; Z7502